=== PATIENT | female | born 1990 | race Caucasian/White ===

== ENCOUNTER 2017-08-26 13:41 | Emergency (ER) | payer OTHER ==
[~2017-08-26] VITALS: Ht 175.3 cm; Wt 70.3 kg
[~2017-08-26 13:41] MED LIST: LABETALOL HCL100 MG PO; METOPROLOL SUC100 MG PO; METOPROLOL SUCC50 MG PO; NORCO 5-325 TA1 EACH PO; TRIAMCINOLONE A15 G1 TOP; ZOFRAN ODT4 MG PO
[2017-08-26] MEDS ORDERED: PRAZOSIN HCL2 MG PO (13:58)
[2017-08-26] MEDS ORDERED: ATIVAN0.5 MG PO (13:58)
[2017-08-26] MEDS ORDERED: LOPERAMIDE2 MG PO (13:58)
[2017-08-26] MEDS ORDERED: TRAZODONE HCL100 MG PO (13:59)
[2017-08-26] MEDS ORDERED: BUSPIRONE HCL10 MG PO (14:00)
[2017-08-26] MEDS ORDERED: PAROXETINE HCL40 MG PO (14:00)
[2017-08-26] MEDS ORDERED: BACTRIM DS TAB1 EACH PO (16:28)
== END 2017-08-26 16:37 | disposition home or self-care (01) ==
LOC: ED 13:41
DX: N39.0 Urinary tract infection, site not specified (principal); T43.595A Adverse effect of other antipsychotics and neuroleptics, initial encounter; I10 Essential (primary) hypertension; Z91.040 Latex allergy status; Z79.899 Other long term (current) drug therapy
CPT/HCPCS: 80053; 81001; 84703; 85025; 87088; 96361; 96374; 99283; J1200; J7030

== ENCOUNTER 2020-01-20 06:51 | Emergency (ER) | payer OTHER ==
[~2020-01-20] VITALS: Ht 175.3 cm; Wt 87.5 kg
[~2020-01-20 06:51] MED LIST changes: +ATIVAN0.5 MG PO; +BACTRIM DS TAB1 EACH PO; +BUSPIRONE HCL10 MG PO; +LOPERAMIDE2 MG PO; +PAROXETINE HCL40 MG PO; +PRAZOSIN HCL2 MG PO; +TRAZODONE HCL100 MG PO
[2020-01-20] MEDS ORDERED: PREDNISONE20 MG PO (07:39)
== END 2020-01-20 07:51 | disposition home or self-care (01) ==
LOC: ED 06:51
DX: L50.9 Urticaria, unspecified (principal); I10 Essential (primary) hypertension; G43.909 Migraine, unspecified, not intractable, without status migrainosus; F41.9 Anxiety disorder, unspecified; Z91.040 Latex allergy status; Z79.899 Other long term (current) drug therapy
CPT/HCPCS: 99282; J7512

== ENCOUNTER 2021-03-27 14:35 | Emergency (ER) | payer OTHER ==
[~2021-03-27] VITALS: Ht 175.3 cm; Wt 87.5 kg
[~2021-03-27 14:35] MED LIST changes: +PREDNISONE20 MG PO
[2021-03-27] MEDS ORDERED: ONDANSETRON ODT4 MG PO (17:42)
== END 2021-03-27 18:15 | disposition home or self-care (01) ==
LOC: ED 14:35
DX: R11.2 Nausea with vomiting, unspecified (principal); J06.9 Acute upper respiratory infection, unspecified; I10 Essential (primary) hypertension; G43.909 Migraine, unspecified, not intractable, without status migrainosus; Z91.040 Latex allergy status; Z88.6 Allergy status to analgesic agent; Z20.822 Contact with and (suspected) exposure to COVID-19; Z79.899 Other long term (current) drug therapy
CPT/HCPCS: 80053; 83735; 85025; 96374; 99284-25; C9803; J1885; U0003

== ENCOUNTER 2021-07-07 04:46 | Emergency (ER) | payer SELFPAY ==
[~2021-07-07] VITALS: Ht 175.3 cm; Wt 99.4 kg
[~2021-07-07 04:46] MED LIST changes: +ONDANSETRON ODT4 MG PO
[2021-07-07] MEDS ORDERED: CEPHALEXIN500 MG PO (05:33)
[2021-07-07] MEDS ORDERED: CLOTRIMAZOLE TOP (05:33)
[2021-07-07] MEDS ORDERED: VALACYCLOVIR1000 MG PO (05:33)
== END 2021-07-07 05:47 | disposition home or self-care (01) ==
LOC: ED 04:46
DX: B02.9 Zoster without complications (principal); I10 Essential (primary) hypertension; G43.909 Migraine, unspecified, not intractable, without status migrainosus; Z91.040 Latex allergy status; Z88.8 Allergy status to other drugs, medicaments and biological substances
CPT/HCPCS: 99282

== ENCOUNTER 2023-08-15 20:57 | Emergency (ER) | payer BC ==
[~2023-08-15 20:57] MED LIST changes: +CEPHALEXIN500 MG PO; +CLOTRIMAZOLE TOP; +VALACYCLOVIR1000 MG PO
[2023-08-15] MEDS ORDERED: RIZATRIPTAN10 M1 (21:06)
[2023-08-15] MEDS ORDERED: AMITRIPTYLINE H50 MG (21:06)
[2023-08-15] MEDS ORDERED: LISINOPRIL10 MG (21:06)
[2023-08-15 22:09] LABS: INFLUENZA B NAA NEGATIVE (NEGATIVE); RESPIRATORY SYNCYTIAL VIR NAA NEGATIVE (NEGATIVE)
[2023-08-15 23:26] VITALS: BP 133/82
== END 2023-08-15 23:28 | disposition home or self-care (01) ==
LOC: ED 20:57
PROVIDERS: Family Medicine
DX: J02.8 Acute pharyngitis due to other specified organisms (principal); B97.89 Other viral agents as the cause of diseases classified elsewhere; I10 Essential (primary) hypertension; F32.A Depression, unspecified; F41.9 Anxiety disorder, unspecified; G43.909 Migraine, unspecified, not intractable, without status migrainosus; Z11.52 Encounter for screening for COVID-19; Z91.040 Latex allergy status; Z88.6 Allergy status to analgesic agent; Z79.899 Other long term (current) drug therapy
CPT/HCPCS: 36415; 86308; 87502; 87651; 99283; U0002

== ENCOUNTER 2024-08-22 09:43 | Emergency (ER) | payer BC ==
[~2024-08-22] VITALS: Ht 175.3 cm; Wt 101.2 kg
[~2024-08-22 09:43] MED LIST changes: +AMITRIPTYLINE H50 MG; +LISINOPRIL10 MG; +RIZATRIPTAN10 M1
[2024-08-22] MEDS ORDERED: TOPIRAMATE100 MG PO (10:19)
[2024-08-22] MEDS ORDERED: PRISTIQ ER50 MG PO (10:19)
[2024-08-22] MEDS ORDERED: VITAMIN D21250 MCG PO (10:20)
[2024-08-22] MEDS ORDERED: KETOROLAC TROME10 MG PO (10:20)
[2024-08-22] MEDS ORDERED: HYDROmorphone HCL 1 MG/ML SYR IV ONE (10:30)
[2024-08-22] MEDS ORDERED: ondansetron HCL 4 MG/2 ML VIAL IV PRN (10:30)
[2024-08-22] MEDS ORDERED: SODIUM CHLORIDE 0.9% 1,000 ML IV ONE (10:30)
[2024-08-22] MEDS ORDERED: KETOROLAC TROMETHAMINE 30 MG/ML VIAL IV ONE (10:30)
[2024-08-22] MEDS ORDERED: diphenhydrAMINE HCL 50 MG/ML VIAL IV ONE (10:30)
[2024-08-22] MEDS ORDERED: PROMETHAZINE HCL 25 MG TAB PO ONE (11:00)
[2024-08-22 12:00] VITALS: BP 131/81
== END 2024-08-22 11:45 | disposition home or self-care (01) ==
LOC: ED 09:43
DX: R51.9 Headache, unspecified (principal); I10 Essential (primary) hypertension; Z91.040 Latex allergy status; Z91.048 Other nonmedicinal substance allergy status; Z88.6 Allergy status to analgesic agent; Z79.899 Other long term (current) drug therapy
CPT/HCPCS: 96361; 96374; 96375; 99283-25; J1171; J1200; J1885; J7030

== ENCOUNTER 2025-01-12 05:33 | Day surgery (SDC) | payer BC ==
[2025-01-08 15:26] VITALS: BP 151/94
[~2025-01-12] VITALS: Ht 175.3 cm; Wt 100.9 kg
[~2025-01-12 05:33] MED LIST changes: +KETOROLAC TROME10 MG PO; +LACTATED RINGER'S 1,000 ML IV SCH; +PRENATA CHEWAB1 EACH PO; +PRISTIQ ER50 MG PO; +TOPIRAMATE100 MG PO; +VITAMIN D21250 MCG PO; +ZOLMITRIPTAN5 MG PO
[2025-01-12 06:04] VITALS: BP 137/97
[2025-01-12] MEDS ORDERED: Methylene Blue 100 MG/10 ML SDV ONE (06:53)
[2025-01-12] MEDS ORDERED: SODIUM CHLORIDE 0.9% 500 ML IV ONE (06:57)
[2025-01-12] MEDS ORDERED: ondansetron HCL 4 MG/2 ML VIAL ONE (06:58)
[2025-01-12] MEDS ORDERED: MIDAZOLAM HCL 2 MG/2 ML VIAL ONE (06:58)
[2025-01-12] MEDS ORDERED: ROCURONIUM BROMIDE 50 MG/5 ML SYR ONE (06:58)
[2025-01-12] MEDS ORDERED: propofoL 200 MG/20 ML VIAL ONE (06:58)
[2025-01-12] MEDS ORDERED: fentaNYL citrate 100 MCG/2 ML VIAL ONE (06:58)
[2025-01-12] MEDS ORDERED: DEXAMETHASONE SOD PHOS 4 MG/ML VIAL ONE (06:58)
[2025-01-12] MEDS ORDERED: dexmedeTOMIDine HCl 200 MCG/2 ML VIAL ONE (06:58)
[2025-01-12] MEDS ORDERED: LIDOCAINE HCL 2% 20 MG/ML VIAL INJ ONE (06:58)
[2025-01-12] MEDS ORDERED: SUGAMMADEX SODIUM 200 MG/2 ML ML ONE (06:58)
[2025-01-12] MEDS ORDERED: KETOROLAC TROMETHAMINE 30 MG/ML VIAL ONE (06:58)
[2025-01-12] MEDS ORDERED: LIDOCAINE HCL 2% 5 ML SDV ONE (06:58)
[2025-01-12] MEDS ORDERED: MAGNESIUM SULFATE 1 GM/2 ML VIAL ONE (06:58)
[2025-01-12] MEDS ORDERED: LIDOCAINE HCL 1% 5 ML SDV INJ ONE (07:00)
[2025-01-12] MEDS ORDERED: IBLOOD GLUCOSE TEST STRIP 1 EA TEST VI PRN ×2 (07:00→08:00)
[2025-01-12] MEDS ORDERED: NALOXONE HCL 0.4 MG SYR IV PRN ×2 (08:00→09:45)
[2025-01-12] MEDS ORDERED: ondansetron HCL 4 MG/2 ML VIAL IV PRN ×2 (08:00→09:45)
[2025-01-12] MEDS ORDERED: droPERidol 5 MG/2 ML VIAL IV PRN (08:00)
[2025-01-12] MEDS ORDERED: fentaNYL citrate 50 MCG/ML SDV IV PRN (08:00)
[2025-01-12] MEDS ORDERED: PROCHLORPERAZINE EDISYLATE 10 MG/2 ML VIAL IV PRN ×2 (08:00→09:45)
[2025-01-12] MEDS ORDERED: HYDROmorphone HCL 1 MG/ML SYR IV PRN (08:00)
[2025-01-12] MEDS ORDERED: LACTATED RINGER'S 1,000 ML IV ONE (08:50)
[2025-01-12] MEDS ORDERED: SIMETHICONE 80 MG CHEW PO PRN (09:45)
[2025-01-12] MEDS ORDERED: MAGNESIUM HYDROXIDE/AL HYDROX 30 ML CUP PO PRN (09:45)
[2025-01-12] MEDS ORDERED: OXYCODONE/APAP 5/325 TAB PO PRN (09:45)
[2025-01-12] MEDS ORDERED: FAMOTIDINE 20 MG/ 2 ML VIAL IV PRN (09:45)
--- NOTE | 2025-01-12 09:57 | NUR ---
01/12/25 0957 Lilo Sutherland 0939-PT ARRIVES TO PACU, VIA STRETCHER, RESTING SEMI FOWLERS, PT RESPONSIVE BUT DROWSY, VSS ON 8L VIA MASK, RR EVEN AND UNLABORED. 0950-PT AWAKENS EASILY TO VOICE, C/O 6/0 CRAMPING PAIN IN ABD BUT DENIES NAUSEA, IV PAIN MEDICATON GIVEN PER ORDER, SEE EMAR. PT TITRATED TO RA, VS REMAIN STABLE.
[2025-01-12 10:21] VITALS: BP 124/88
--- NOTE | 2025-01-12 10:24 | NUR ---
1008- VITAL SIGNS OBTAINED. BEDSIDE REPORT RECIEVED FROM ALFREDO BARRERA. CALL LIGHT IN REACH AND BED IS LOCKED IN THE LOWEST POSITION. SURGICAL SITES ARE CDI. PT REPORTS 4/10 PAIN AND NO NAUSEA. PT SHOWS SOME FACIAL GRIMACING. DISCHARGE CRITERIA DISCUSSED AND PT IS UNDERSTANDING.
[2025-01-12] MEDS ORDERED: OXYCODONE HCL 5 MG TAB PO ONE (10:45)
[2025-01-12] MEDS ORDERED: OXYCODONE HCL 10 MG TAB PO ONE (10:45)
[2025-01-12 10:56] VITALS: BP 118/79
--- NOTE | 2025-01-12 11:00 | NUR ---
1101- PAIN MEDICATION AND NAUSEA MEDICATION GIVEN DURING THIS HOUR, SEE EMAR. PT REPORTS NAUSEA BUT REPORTS SHE DOES NOT FEEL LIKE SHE WILL GET SICK. PT RESTING WITH EYES CLOSED. PT ATE A FEW BITES OF PUDDING AND SIPPING ON WATER. PT REPORTS PAIN IS 1/10. SURGICAL SITES ARE CDI, OTHER THAN THE RLQ SHOWS A SMALL AMOUNT OF SHADOWING. PT REPORTS WANTING TO REST.
[2025-01-12] MEDS ORDERED: SEVOFLURANE 250 ML BTL INH ONE (11:30)
[2025-01-12 12:13] VITALS: BP 124/80
--- NOTE | 2025-01-12 12:24 | NUR ---
1220- PT IS RESTING. VITAL SIGNS OBTAINED. SURGICAL SITES REMAIN UNCHANGED. PT REPORTS NEEDING TO USE THE RESTROOM. PT IS ABLE TO VOID 300ML OF RED TINGED URINE. PT IS ABLE TO AMBULATE SAFELY TO AND FROM THE RESTROOM. PT REQUESTING PUDDING.
[2025-01-12 12:58] VITALS: BP 120/76
[2025-01-12] MEDS ORDERED: SIMETHICONE 80 MG CHEW PO SCH (13:00)
--- NOTE | 2025-01-12 13:02 | NUR ---
1301- PT SITTING UP AND TALKING. PT IS DRESSED. IV IS SALINE LOCKED. CALL LIGHT IN REACH. PT IS AWARE OF WAITING. VITAL SIGNS OBTAINED.
--- NOTE | 2025-01-12 13:33 | NUR ---
1325- IV REMOVED. DC INFORMATION GONE OVER AND EDUCATION GIVEN. PT AND FAMILY QUESTIONS AND CONCERNS ANSWERED. PT IS ABLE TO AMBULATE TO WHEELCHAIR, HAS ALL BELONGINGS AND IS PROPELLED OUT OF DAY SURGERY. ON THE WAY OUT THE DOOR DR. CASILLAS STOPPED AND ANSWERED FURTHER QUESTIONS POSED BY THE PT AND MOTHER. PT IS ABLE TO GET INTO VEHICLE SAFELY.
--- NOTE | 2025-01-13 17:24 | OR ---
[facility] [address] [facility] [place], [place] [address] Signed DATE OF OPERATION: 01/12/2025 SURGEON: Suri Parikh DO PREOPERATIVE DIAGNOSES: 1. Abnormal uterine bleeding. 2. Dysmenorrhea. 3. Endometrial polyp. POSTOPERATIVE DIAGNOSES: 1. Abnormal uterine bleeding. 2. Dysmenorrhea. 3. Endometrial polyp. 4. Abdominal adhesions. PROCEDURES PERFORMED: 1. Hysteroscopy, dilation and curettage. 2. Polypectomy. 3. Laparoscopic lysis of adhesions. 4. Chromopertubation. ANESTHESIA: General. ESTIMATED BLOOD LOSS: 20 mL. FLUIDS DEFICIT: With hysteroscopy, 160 mL. SPECIMEN: Endometrial curettings and polyp. FINDINGS: Normal external genitalia with normal clitoris, urethral meatus, bilateral Anson's and Bartholin's glands. Normal vagina and cervix. On hysteroscopy, normal cervical canal and normal tubal ostia bilaterally. Thickened endometrium with polyp. Polypectomy and D and C were performed restoring normal intrauterine cavity and architecture. On laparoscopy, significant omental adhesions to the anterior abdominal wall. They were taken down laparoscopically with great care. Normal uterus, tubes, and ovaries. There Electronically Signed By: SURI PARIKH DO (JD) 01/13/25 1724 PATIENT NAME: LISET RONDON OPERATIVE REPORT DATE OF : [birth year] REPORT #: [id number] PHYSICIAN: SURI PARIKH DO (JD) PCP: YAMILET RAMIREZ PA-C REPORT IS CONFIDENTIAL AND NOT TO BE RELEASED WITHOUT AUTHORIZATION [facility] [address] [place], [place] [address] Signed was a possible small focus of endometriosis of the right ovary and tubo-ovarian ligament. Patent fallopian tubes bilaterally. COMPLICATIONS: None. INDICATIONS: Ms. Rondon is a very pleasant 34-year-old female with abnormal uterine bleeding, dysmenorrhea, and ultrasound suggestive of endometrial polyp. She was consented for hysteroscopy, D and C, polypectomy, diagnostic laparoscopy, and chromopertubation. Risks, benefits, and alternatives were discussed in detail with the patient. The patient understands and wishes to proceed with the procedure. DESCRIPTION OF PROCEDURE: The patient was taken to the OR. A time-out was performed to confirm correct patient and correct procedure. General anesthesia was adequately established. The patient was prepped and draped in dorsal lithotomy position with feet in Yellofin stirrups. ICPs were on running and no preoperative antibiotics or heparin was indicated. A Larsen catheter was inserted. Weighted speculum was placed in the vagina and the anterior lip of the cervix was grasped with a single-tooth tenaculum. The cervix was gently dilated using a Hegar dilator. An operative hysteroscope was then placed in the cervical os and advanced under direct visualization without complication in the uterine cavity. Thickened endometrium and endometrial polyp was noted and normal tubal ostia were appreciated bilaterally. MyoSure Lite device was selected. Polypectomy was performed and circumferential curettage was gently performed using the MyoSure Lite device. Normal uterine architecture was achieved and the operative hysteroscope was withdrawn. A SILVIA uterine manipulator was then placed without difficulty. The surgeon's gloves were changed and attention was turned to the abdomen. Just inferior to the umbilicus, the skin was infiltrated with 0.25% Marcaine with epinephrine and a vertical incision was made through prior scar. This was carried down to the fascia. The fascia was grasped, elevated, and entered sharply with Metzenbaum scissors. Stay sutures were placed in the superior and inferior edge of the fascial incision. The peritoneum was then entered bluntly with my finger. Omental adhesions were notably palpable. A Rosalva operative port was then placed. Pneumoperitoneum was established. Dense omental adhesions were noted, however, the camera was able to be maneuvered to place 5-mm pediatric physical therapy assistant ports in the left lower quadrant, right lower quadrant under direct visualization without complication. Assist ports were then used to carefully evaluate omental adhesions and these were very carefully and meticulously taken down using a LigaSure device without complication. Hemostasis was appreciated. Survey of the abdomen and pelvis was then performed. Normal liver and gallbladder. Surgically absent appendix with some scarring around the terminal ileum consistent with history. Attention was then turned to the pelvis. The patient with normal uterus, bilateral Electronically Signed By: SURI PARIKH DO (JD) 01/13/25 1724 PATIENT NAME: LISET RONDON OPERATIVE REPORT DATE OF : [birth year] REPORT #: [id number] PHYSICIAN: SURI PARIKH) PCP: YAMILET RAMIREZ PA-C REPORT IS CONFIDENTIAL AND NOT TO BE RELEASED WITHOUT AUTHORIZATION [facility] [address] [place] [id number] Signed fallopian tubes, cul-de-sac, and pelvic peritoneum. The right ovary demonstrated some minute cystic changes at the junction of the ovary to the utero-ovarian ligament, which could possibly be consistent with endometriosis. However, this was felt to not indicate intervention at this point. Attention was then turned to chromopertubation. Dilute methylene blue was then instilled through the uterus, through the SILVIA device and easy spillage of fluid was noted through each fallopian tube. Pneumoperitoneum was reduced. Trocars were removed. The infraumbilical site was attempted to be closed with 0 Vicryl. However, brisk oozing was noted just inferior to the fascia on the patient's left side. The incision was then opened wider to provide visualization access to this oozing area. The peritoneum and fascia were then reapproximated using 2-0 Vicryl in a running nonlocked manner to establish hemostasis. Fascia was then able to be easily closed using 0 Vicryl in a running nonlocked manner with excellent reapproximation and hemostasis. Stay sutures were plicated to reinforce the fascial incision. Subcu was then made hemostatic with judicious use of Bovie electrocautery and was closed in three layers of 2-0 Vicryl. Skin was then reapproximated using 3-0 Vicryl repeat in subcuticular stitch with excellent hemostasis and cosmesis. The right lower quadrant 5 mm assist port was again accessed and the fascia and anterior abdominal wall were carefully evaluated, demonstrating excellent hemostasis and no adhesions or complications. The pneumoperitoneum was slowly reduced. Trocar was removed and assist trocar sites were repaired using 3-0 Vicryl Rapide in the subcuticular stitch with excellent hemostasis and cosmesis. Survey was returned to the pelvis. The Larsen catheter was removed and the SILVIA device and single-tooth tenaculum removed. Excellent hemostasis of the cervix was appreciated. The patient was then taken to the PACU in good and stable condition. Sponge, needle, and instrument count was correct x2 at the end of the procedure. DO JOSE MIGUEL Anderson/ROD /[id number] Electronically Signed By: SURI PARIKH (JD), DO 01/13/25 1724 PATIENT NAME: LISET RONDON OPERATIVE REPORT DATE OF : [birth year] REPORT #: [id number] PHYSICIAN: SURI PARIKH DO (JD) PCP: YAMILET RAMIREZ PA-C REPORT IS CONFIDENTIAL AND NOT TO BE RELEASED WITHOUT AUTHORIZATION [address] [place], [place] [address] Signed Copies: ~ Electronically Signed By: SURI PARIKH (JD), DO 01/13/25 1724 PATIENT NAME: LISET RONDON OPERATIVE REPORT DATE OF : [birth year] REPORT #: [id number] PHYSICIAN: SURI PARIKH DO (JD) PCP: YAMILET RAMIREZ PA-C REPORT IS CONFIDENTIAL AND NOT TO BE RELEASED WITHOUT AUTHORIZATION
--- NOTE | 2025-01-14 19:56 | PATH ---
[facility] [address] [place], [place] [address] Signed SPECIMEN(S): A ENDOMETRIAL CURETTINGS AND POLYP SPECIMEN SOURCE: A. ENDOMETRIAL CURETTINGS AND POLYP CLINICAL HISTORY: AUB, dysmenorrhea FINAL PATHOLOGIC DIAGNOSIS: Endometrium and polyp, curettage: - Multiple portions of endometrial polyp. - Lymphoid aggregates, a single reactive lymphoid follicle, and occasional plasma cells are present; compatible with chronic endometritis. - Negative for hyperplasia, atypia, and malignancy. SDL MICROSCOPIC EXAMINATION: Histologic sections of all submitted blocks are examined by light microscopy. These findings, together with the gross examination, support the pathologic diagnosis. GROSS DESCRIPTION: The specimen, labeled and designated "Nela, endometrial curettings and polyp," is received in formalin and consists of multiple fragments of silvestre soft tissue (2.8 x 2.6 x 0.5 cm in aggregate). The specimen is submitted entirely in cassette (A1). VB (under the direct supervision of a pathologist) The Gross Description was prepared using a voice recognition system. The report was reviewed for accuracy; however, sound-alike word errors, addition and/or deletions may occur. If there are any questions about this report, please contact Client Services. ADDITIONAL NOTES: Immunohistochemical and/or in situ hybridization studies if performed in this case included appropriate positive controls that reacted as expected. This test was developed and its performance characteristics determined by [employer]. It has not been cleared or approved by the U.S. Food and Drug Administration. The FDA has determined that such clearance or approval is not necessary. This test is used for clinical purposes. It should not be regarded PATIENT NAME: LISET FERNANDES PATHOLOGY DATE OF : [birth year] REPORT #: [id number] PHYSICIAN: RAKESH LAKHANI PCP: YAMILET RAMIREZ PA-C REPORT IS CONFIDENTIAL AND NOT TO BE RELEASED WITHOUT AUTHORIZATION [facility] [address] [place] [id number] Signed as investigational or for research. [employer] is certified under the Clinical Laboratory Improvement Amendments of 1988 (CLIA) as qualified to perform high complexity clinical laboratory testing. PERFORMING LABORATORY: Technical component was performed by [employer], [address] [place] [address] (CLIA# [id number]). Professional interpretation was performed by [facility] - [facility], [address] [place] [id number] (CLIA#: [id number]). Diagnostician: Rekha Drew MD Pathologist Electronically Signed 01/14/2025 Copies: ~ PATIENT NAME: LISET FERNANDES PATHOLOGY DATE OF : [birth year] REPORT #: [id number] PHYSICIAN: [facility] PCP: YAMILET RAMIREZ PA-C REPORT IS CONFIDENTIAL AND NOT TO BE RELEASED WITHOUT AUTHORIZATION
== END 2025-01-12 13:25 | disposition home or self-care (01) ==
LOC: DS 05:33 → OPS 05:33 → DS 07:30 → OPS 13:25
PROVIDERS: ATTEND Obstetrics & Gynecology
PROC: 0UB98ZZ Excision of Uterus, Via Natural or Artificial Opening Endoscopic (ICD-10-PCS; principal; 2025-01-12 07:30)
DX: N84.0 Polyp of corpus uteri (principal); N93.9 Abnormal uterine and vaginal bleeding, unspecified; K66.0 Peritoneal adhesions (postprocedural) (postinfection)
CPT/HCPCS: 00952; A9270; J1100; J1885; J2003; J2250; J2405; J2704; J3010; J3475; J3490; J7040; J7121